=== PATIENT | male | born 1965 | race Caucasian/White ===

== ENCOUNTER 2020-11-25 23:00 | Observation (INO) | payer BC, SELFPAY ==
--- NOTE | ~2020-11-25 | CT_ITS ---
EXAMINATION: CT abdomen pelvis w con DATE: 11/26/2020 00:08 INDICATION: Left lower quadrant abdominal pain, nausea and vomiting TECHNIQUE: Computed tomography (CT) of the abdomen and pelvis was performed with 100 mL Omnipaque-350 intravenous contrast. Automated exposure control and iterative reconstruction technique were employe d. The dose-length product was 270.94 mGy-cm. COMPARISON: 01/16/2015 FINDINGS: Lung bases are clear. Heart size is normal. No pericardial or pleural effusion. Wall thickening the d istal esophagus which may be related to reflux esophagitis given the provided history of vomiting. St atus post cholecystectomy. Liver, spleen, pancreas and right adrenal gland are normal. Unchanged subc entimeter left adrenal nodule which given the interval stable stability is most consistent with an ad enoma. 1 cm right renal cyst. Unchanged mild bilateral perinephric stranding. Normal appendix. Coloni c fluid from the cecum to the mid descending colon consistent with diarrhea. Likely transient short s mall bowel intussusception located slightly anterior to the lower pole of the left kidney. No evident leak mass identified. No dilated loops of bowel to suggest obstruction. Bladder is normal. No free i ntraperitoneal gas or fluid. No pathologically enlarged abdominal or pelvic lymphadenopathy. Mild lum bar dextrocurvature. Mild scattered degenerative skeletal changes throughout the visualized spine and pelvis IMPRESSION: 1. Fluid throughout nondilated small bowel and proximal to mid colon consistent with diarrhea. Correl ate clinically for gastroenteritis. 2. Edematous wall thickening the distal esophagus likely related to reflux esophagitis given the prov ided history of nausea and vomiting. 3. Likely transient short segment small bowel intussusception in the left mid abdomen. Reviewed, dictated and finalized at location A. URCE ENGINEER IMPRESSION: 1. Fluid throughout nondilated small bowel and proximal to mid colon consistent with diarrhea. Correlate clinically for gastroenteritis. 2. Edematous wall thickening the distal esophagus likely related to reflux esop hagitis given the provided history of nausea and vomiting. 3. Likely transient short segment small bowel intussusception in the left mid a bdomen.
--- NOTE | ~2020-11-25 | XR_ITS ---
EXAMINATION: XR small bowel follow through DATE: 11/26/2020 16:06 INDICATION: Small bowel intussusception. Left lower quadrant abdominal pain. TECHNIQUE: Scabbler radiograph(s) of the abdomen was/were obtained. Oral contrast was administered, and sequential radiographs of the abdomen were obtained until oral contrast was noted to be in the proxi mal colon. Spot fluoroscopic images of the small bowel were obtained. A total of 11 overhead radiogra phs and 156 fluoroscopic images were recorded. Fluoroscopy exposure time was 0.8 minutes. COMPARISON: None. FINDINGS: Transit time from the stomach to proximal colon was approximately 3 hours and 30 minutes. There is no rmal caliber and mucosal fold pattern throughout the small bowel. Terminal ileum is normal. No, int ussusception, tethering or abnormal mass effect observed upon the small bowel with real-time fluorosc opy. IMPRESSION: 1. Normal small bowel follow-through. Reviewed, dictated and finalized at location A. ATRIC SOCIAL WORKER
[2020-11-25 23:02] VITALS: BP 113/85; PULSE 83; RESP 16; TEMP 36.7; O2SAT 100
--- NOTE | 2020-11-25 23:28 | ED.ABDPAIN ---
HPI - Abdominal Pain General Chief Complaint: Abdominal Pain Stated Complaint: abd pain Time Seen by Provider: 11/25/20 23:13 Source: patient Mode of arrival: ambulatory Limitations: no limitations History of Present Illness HPI narrative: A 55-year-old male [facility] with complaints of abdominal pain. Patient states that started earlier this evening. He notes that he was working out in his garage when he started not feel very well. Patient states that he had drank a few beers went inside had some dinner came back out working in his garage had a few more beers and said that he was just feeling unwell. Patient states that he is having abdominal pain, with nausea but no vomiting. He isolates the worst pain to his left lower quadrant but states it is diffuse. Patient denies any fevers or chills. Related Data Allergies Allergy/AdvReac Type Severity Reaction Status Date / Time No Known Allergies Allergy Verified 11/06/20 14:58 Review of Systems Review of Systems: Narrative: CONSTITUTIONAL: Denies fever, chills, or sweats. EYES: Denies visual changes, redness, or discharge. ENT: Denies rhinorrhea, congestion, sore throat, or otalgia. CARDIOVASCULAR: Denies chest pain, palpitations, or edema. RESPIRATORY: Denies cough or dyspnea. GASTROINTESTINAL: Denies nausea, vomiting, or diarrhea. Endorses pain and nausea GENITOURINARY: Denies dysuria or hematuria. SKIN: Denies rash or itching. MUSCULOSKELETAL: Denies back pain, joint pain, or myalgia. NEUROLOGIC: Denies headache, numbness, dizziness, or weakness. PSYCHIATRIC: Denies anxiety or depression. [facility] Past Medical History Medical History Anxiety Celiac artery stenosis Chronic abdominal pain Chronic low back pain Depression GERD without esophagitis Stomach pain Surgical History Surgical History History of cholecystectomy History of esophagogastroduodenoscopy (EGD) Dr Acuña at [facility] of neck surgery (~1997) Family History Family History Father Hypertension Family history of throat cancer Mother Hypertension Social History Social History Smoking packs per day: 1 Smoking cigarettes per day: 20.0 Years smoked: 25 Smoking pack-years: 25.00 Smoking status: Current every day smoker Tobacco type: cigarettes Additional smoking assessment comments: pt reports he has tried to quit. Alcohol intake: current Drinks per week: 16 Substance use: never Substance use type: does not use Gender identity (if verbalized by the patient): Male Exam Narrative: Exam Narrative: GENERAL: Well-appearing, well-nourished, and in no acute distress. HEAD: Normocephalic, atraumatic. EYES: PERRLA and EOMI. ENT: Nares clear, no rhinorrhea or epistaxis. Mucous membranes moist. Oropharynx without tonsillar hypertrophy exudate or other lesions. Bilateral TMs pearly ospina nonbulging NECK: Supple. No adenopathy or masses. No carotid bruits or JVD CHEST: Clear to auscultation. No respiratory distress. No wheezes rales or rhonchi HEART: Regular rate and rhythm. No murmur heard. Normal peripheral pulses. ABDOMEN: Soft, nondistended, normal active bowel sounds. LLQ TTP. EXTREMITIES: Normal range of motion. No edema. SKIN: Warm, dry, no rash. NEURO: No focal deficits. Alert and oriented x3. PSYCH: Normal mood and affect. Course Reevaluation(s) Reevaluation #1: Patient resting comfortably at this time. He states that his pain recently just eased. Patient did state that he was extremely relieved as he has been dealing with these episodic pains for several years and no one has ever been able to figure out what is going on. Patient to be admitted for observation to surgical services, Dr. Salas. Time: 01:27 Consultatio
[2020-11-25 23:30] LABS: Basophils Absolute Auto 0.1 K/mm3 (0.0-0.1); Basophils Percent Auto 0.4 % (0.2-1.2); Eosinophils Absolute Auto 0.2 K/mm3 (0-0.3); Eosinophils Percent Auto 1.1 % (0-4.4); Hematocrit 38.7 % (42.0-52.0); Hemoglobin 13.4 g/dL (14.0-18.0); Immature Granulocyte Absolute 0.08 K/mm3 (0.00-0.031); Immature Granulocyte Percent A 0.6 % (0-0.5); Lymphocytes Absolute Auto 1.73 K/mm3 (0.9-3.2); Lymphocytes Percent Auto 12.1 % (18.3-44.2); Mean Corpuscular HGB Conc 34.6 g/dl (32-36); Mean Corpuscular Hemoglobin 33.8 pg (26-34); Mean Corpuscular Volume 97.5 fl (80-100); Mean Platelet Volume 9.8 fl (7.4-10.4); Monocytes Absolute Auto 0.8 K/mm3 (0.1-0.6); Monocytes Percent Auto 5.6 % (2.6-8.5); Neutrophils Absolute Auto 11.5 K/mm3 (1.3-6.7); Neutrophils Percent Auto 80.2 % (45.5-73.1); Platelet Count Result 229 k/mm3 (150-375); Red Blood Count 3.97 M/mm3 (4.6-6.20); Red Cell Distribution Width 12.5 % (11.5-14.5); White Blood Count 14.3 K/mm3 (4.5-10.0)
[2020-11-25 23:42] LABS: Alanine Aminotransferase 24 U/L (4-50); Albumin Level 4.4 g/dL (3.5-5.1); Alkaline Phosphatase 58 U/L (38-126); Anion Gap 7 mmol/L (8-16); Aspartate Amino Transferase 30 U/L (17-59); Bilirubin,Total 0.3 mg/dL (0.2-1.3); Blood Urea Nitrogen 13 mg/dL (9-20); Calcium 9.4 mg/dL (8.4-10.2); Carbon Dioxide 30 mmol/L (22-30); Chloride 101 mmol/L (98-107); Estimated CRCL calculation 88 ml/min; Estimated Glomerular Filt Rate > 60; Glucose 94 mg/dL (75-110); Lipase 120 U/L (23-300); Potassium 3.6 mmol/L (3.4-5.0); Sodium 138 mmol/L (137-145)
[2020-11-25 23:56] LABS: Lactic Acid Reflex 2.2 mmol/L (0.7-2.1)
[2020-11-26] VITALS (8 sets, daily range): BP systolic 107–130; BP diastolic 51–70; PULSE 64–88; RESP 14–20; TEMP 36.4–37.1; O2SAT 97–99; BMI 22.2
[2020-11-26] MEDS: LACTATED RINGERS 1,000 ML 999 ML IV CONT (00:09)
[2020-11-26] MEDS: KETOROLAC 15 MG/ML VIAL (*BKC) IV PUSH (00:09)
[2020-11-26 00:20] LABS: Add Urine Microscopic? YES; Appearance Urine Clear (Clear); Bilirubin Urine Negative (Negative); Blood Urine Negative (Negative); Color Urine Yellow (Yellow); Glucose Urine UA Negative (Negative); Ketones Urine Trace mg/dL (Negative); Leukocyte Esterase Ur Negative LEU/UL (Negative); Mucus Urine Rare /lpf; Nitrate Urine Negative (Negative); Protein Urine Negative (Negative); RBC Urine 0-2 /hpf (0-2); Specific Grav Ur 1.011 (1.001-1.035); Urobilinogen Urine Negative mg/dL (<2.0); WBC Urine 0-3 /hpf
--- NOTE | 2020-11-26 02:21 | ADMGEN ---
This patient, Stas Pleitez, was admitted to Medical Room 241-01 at 0210. Patient/family oriented to hospital policies and general routines including ID bracelet, bed and alarms, visiting hours, pain management, procedures, bathroom and other care routines, personal items, smoking policy, room service/diet, and visiting hours. Information on how to activate the Rapid Response Team has been discussed. Patient/Family are encouraged to report perceived risks to care and to ask questions if they do not understand what they are told or what they should do.
[2020-11-26 02:39] LABS: Reflex Lactic Acid Yes or No Add Lactic
[2020-11-26] MEDS: ONDANSETRON INJ 4 MG/2 ML VIAL IV PUSH (03:07)
[2020-11-26] MEDS: MORPHINE SULFATE (*CRX) 2 MG/ML INJ IV PUSH ×3 (03:07→21:39)
[2020-11-26 03:27] LABS: Lactic Acid 0.8 mmol/L (0.7-2.1)
[2020-11-26] MEDS: NICOTINE (*PBKC) 21 MG PATCH 1 PATCH TRANSDERM (08:27)
--- NOTE | 2020-11-26 11:10 | PM.IMHP ---
H&P: HPI History of Present Illness Date/Time: 11/26/20 11:10 Chief Complaint: abdominal pain Narrative: Stas Pleitez is a 55 year old male c h/o chronic postprandial LLQ abdominal pain. Pt reports symptoms wax and wane but have been pretty constant for the last 10 yrs. Pt reports he has had an extensive workup and all tests are usually completely normal. Pt reports he is having difficulty living in this constant pain and is very frustrated c the situation. Pt reports pain is sometimes assoc c N/V, diarrhea. Review of Systems Constitutional: Constitutional: Reports anorexia, Denies chills, Reports difficulty sleeping, Reports fatigue, Denies fever(s), Denies headache(s), Denies increased appetite, Reports lethargy, Denies malaise, Reports poor appetite, Reports weakness, Denies weight gain and Reports weight loss Eyes: Eyes: Reports no additional eye complaints ENT: Reports system reviewed and no additional complaints, except as documented Cardiovascular: Cardiovascular: Reports no additional cardiovascular complaints Respiratory: Respiratory: Reports no additional respiratory complaints Gastrointestinal: Gastrointestinal: Reports as per HPI Genitourinary: Genitourinary: Reports no additional male genitourinary complaints Musculoskeletal: Musculoskeletal: Reports no additional musculoskeletal complaints Integumentary/Breasts: Skin/Breast: Reports system reviewed and no additional complaints, except as docu Neurologic: Reports system reviewed and no additional complaints, except as documented Psychiatric: Psychiatric: Reports no additional psychiatric complaints Endocrine: Endocrine: Reports no additional endocrine complaints Hematologic/Lymphatic: Hematologic/Lymphatic: Reports no additional hematologic/lymphatic complaints Allergic/Immunologic: Allergic/Immunologic: Reports no additional allergic/immunologic complaints [facility] Past Medical History Medical History Anxiety Celiac artery stenosis Chronic abdominal pain Chronic low back pain Depression GERD without esophagitis Stomach pain Surgical History Surgical History History of cholecystectomy History of esophagogastroduodenoscopy (EGD) Dr Acuña at [facility] of neck surgery (~1997) Family History Family History Father Hypertension Family history of throat cancer Mother Hypertension Social History Social History Smoking packs per day: 2 Smoking cigarettes per day: 40.0 Years smoked: 25 Smoking pack-years: 50.00 Smoking status: Current every day smoker Tobacco type: cigarettes Additional smoking assessment comments: PURCHASED PATCH AT HOME WAS GETTING READY TO QUIT SMOKING Alcohol intake: former Drinks per week: 12 Substance use: current Substance use type: marijuana Gender identity (if verbalized by the patient): Male Spiritual care concerns: No Meds Home Medications and Allergies Home Medications Medication Instructions Recorded Confirmed Type pantoprazole 40 mg tablet,delayed 40 mg PO QAM #90 tablet 11/08/20 11/26/20 Rx release hydrocodone 7.5 mg-acetaminophen 1 tablet PO DAILY PRN #30 tablet 11/18/20 11/26/20 Rx 325 mg tablet dicyclomine 10 mg PO TID 11/26/20 11/26/20 History Allergies Allergy/AdvReac Type Severity Reaction Status Date / Time No Known Allergies Allergy Verified 11/06/20 14:58 Vital Signs Vital Signs - 24 hr 11/25/20 23:02 11/26/20 00:39 11/26/20 00:57 Temperature 36.7 C 36.7 C Pulse Rate 83 88 Respiratory Rate 16 16 Blood Pressure 113/85 122/70 Pulse Oximetry 100 99 11/26/20 01:41 11/26/20 02:26 11/26/20 04:58 Temperature 36.6 C 37.1 C 36.6 C Pulse Rate 86 87 74 Respiratory Rate 16 20 20 Blood Pressure 117/69 107/59
[2020-11-26] MEDS: ZOLPIDEM TARTRATE (*CRX) 5 MG TABLET PO (21:39)
[2020-11-27] MEDS: MORPHINE SULFATE (*CRX) 2 MG/ML INJ IV PUSH (04:57)
[2020-11-27 05:31] VITALS: BP 113/58; PULSE 65; RESP 16; TEMP 36.3; O2SAT 99
[2020-11-27 05:36] LABS: Basophils Absolute Auto 0.1 K/mm3 (0.0-0.1); Basophils Percent Auto 0.7 % (0.2-1.2); Eosinophils Absolute Auto 0.3 K/mm3 (0-0.3); Eosinophils Percent Auto 4.3 % (0-4.4); Hematocrit 35.3 % (42.0-52.0); Hemoglobin 11.8 g/dL (14.0-18.0); Immature Granulocyte Absolute 0.01 K/mm3 (0.00-0.031); Immature Granulocyte Percent A 0.1 % (0-0.5); Lymphocytes Absolute Auto 3.04 K/mm3 (0.9-3.2); Lymphocytes Percent Auto 40.8 % (18.3-44.2); Mean Corpuscular HGB Conc 33.4 g/dl (32-36); Mean Corpuscular Hemoglobin 32.8 pg (26-34); Mean Corpuscular Volume 98.1 fl (80-100); Mean Platelet Volume 10.5 fl (7.4-10.4); Monocytes Absolute Auto 0.5 K/mm3 (0.1-0.6); Monocytes Percent Auto 6.8 % (2.6-8.5); Neutrophils Absolute Auto 3.5 K/mm3 (1.3-6.7); Neutrophils Percent Auto 47.3 % (45.5-73.1); Platelet Count Result 215 k/mm3 (150-375); Red Cell Distribution Width 12.6 % (11.5-14.5); White Blood Count 7.5 K/mm3 (4.5-10.0)
[2020-11-27 05:53] LABS: Alanine Aminotransferase 21 U/L (4-50); Albumin Level 3.6 g/dL (3.5-5.1); Alkaline Phosphatase 52 U/L (38-126); Anion Gap 2 mmol/L (8-16); Aspartate Amino Transferase 27 U/L (17-59); Bilirubin,Total 0.6 mg/dL (0.2-1.3); Blood Urea Nitrogen 13 mg/dL (9-20); Carbon Dioxide 34 mmol/L (22-30); Chloride 107 mmol/L (98-107); Estimated CRCL calculation 93 ml/min; Estimated Glomerular Filt Rate > 60; Glucose 89 mg/dL (75-110); Potassium 4.1 mmol/L (3.4-5.0); Sodium 143 mmol/L (137-145)
[2020-11-27 06:00] VITALS: BP 113/58; PULSE 65; RESP 16; TEMP 36.3; O2SAT 99
[2020-11-27] MEDS: NICOTINE (*PBKC) 21 MG PATCH 1 PATCH TRANSDERM (08:50)
[2020-11-27] MEDS: DICYCLOMINE HCL 10 MG CAPSULE PO (12:36)
[2020-11-27 14:00] VITALS: BP 117/68; PULSE 69; RESP 16; TEMP 36.6; O2SAT 100
--- NOTE | 2020-11-27 14:55 | PM.DS ---
DS: Admitting Diagnosis Admitting Diagnosis Admitting Diagnosis: Enteric intussusception Chronic abdominal pain DS: Discharge Diagnosis Discharge Diagnosis (1) Enteric intussusception: Code(s): K56.1 - Intussusception Status: Acute (2) Chronic abdominal pain: Code(s): R10.9 - Unspecified abdominal pain; G89.29 - Other chronic pain Status: Acute DS: Summary Hospital Course Reason for hospitalization: This is a 55-year-old male with a history of chronic abdominal pain and alcohol abuse, who presented to the ER with abdominal pain and vomiting. He reports a 10 year history of postprandial LLQ abdominal pain. This pain has been consistent for 10 years. He has had an extensive work-up with Gastroenterology and reports that all tests have come back essentially normal. He had an increase in this LLQ pain overnight on 11/25/20 with associated nausea and vomiting, and presented to the ER for evaluation. CT scan of the abdomen and pelvis suggested likely transient short segment small bowel intussusception in the left mid abdomen. He was then admitted to our service for surgical evaluation. Hospital Course: The patient was admitted and made NPO. His pain improved with bowel rest and time. We then proceeded with a gastrografin small bowel follow through to further evaluate the small bowel, which was completely normal with no tethering or abnormal mass effect of the small bowel. The patient was slowly advanced on a diet and has been tolerating this well. Bowels are moving and his pain has subsided. He continues to have postprandial pain but this has subsided after having a bowel movement today. Abdominal exam remains benign today. I have discussed the patient's case and formulated plan of care with Dr. Salas. The patient ultimately needs further outpatient workup for his chronic abdominal pain. No surgical indication at this time. The small bowel intussusception seen on CT was likely transient and he is stable for discharge. I discussed discharge instructions with the patient and answered all questions. Status at Discharge Functional status at discharge: independent ambulation Overall status at discharge: patient is back to baseline Time Spent with Patient Time attestation: Total time spent providing and/or coordinating discharge services: Time spent: Greater than 30 minutes Exam Const: Nutritional Appearance: average body habitus Orientation/consciousness: patient oriented x3 Cardio: Rate: regular rate Rhythm: regular rhythm GI: Inspection: normal to inspection and non-distended GI Palp: Yes Soft to palpation, No Tenderness to palpation present (GI), No Guarding due to palpation present (GI), No Rigid due to palpation, No Hernia present and No Rebound tenderness present Percussion: Yes normal to percussion Auscultation: normal bowel sounds Neuro: General: patient oriented x3, moves all extremities, no focal motor deficits and CN's II-XI intact bilaterally Extrem: General: normal to inspection, full ROM and no calf tenderness Psych: Appearance: grossly normal Mental Status: mental status grossly normal Insight: Good insight present (Psych) Judgement: Good judgement present (Psych) DS: Data Data Completed and Pending Labs on day of discharge: Labs from last 24 hours 11/27/20 11/27/20 04:46 04:46 WBC 7.5 RBC 3.60 L Hgb 11.8 L Hct 35.3 L MCV 98.1 MCH 32.8 MCHC 33.4 RDW 12.6 Plt Count 215 MPV 10.5 H Immature Gran % (Auto) 0.1 Neut % (Auto) 47.3 Lymph % (Auto) 40.8 [place] % (Auto) 6.8 Eos % (Auto) 4.3 Baso % (Auto) 0.7 Lymph # (Auto) 3.04 [place] # (Auto) 0.5 Eos # (Auto) 0.3 Baso # (Auto) 0.1 Abs Immat Gran (auto) 0.01 Absolute Neuts (auto) 3.5 Absolute Nucleated RBC 0.0 Nucleated RBC % 0.0 Sodium 143 Potassium 4.1 Chloride 107 Carbon Dioxide 34 H Anion Gap 2 L BUN 13 Creatinine 0.80 Estim Creat Clear Calc 93 Estimated GFR > 60 Glu
== END 2020-11-27 17:00 | disposition home or self-care (01) ==
LOC: ANHED 11-26 01:29 → ANH2MED 11-26 01:56
PROVIDERS: Admitting Provider Surgery; Emergency Provider Emergency Medicine; PCP Internal Medicine; Visit Provider Surgery
DX: K56.1 Intussusception (principal); R10.32 Left lower quadrant pain; G89.29 Other chronic pain; F10.10 Alcohol abuse, uncomplicated; F17.210 Nicotine dependence, cigarettes, uncomplicated
CPT/HCPCS: 36415; 74177; 74250; 80053; 81001; 83605; 83690; 85025; 96361; 96374; 96375; 96376; 99285; A9270; G0378; J1885; J2270; J2405; J7120; Q9967

== ENCOUNTER → 2020-12-02 00:49 | Outpatient (CLI) | payer BC, MEDICARE, SELFPAY ==
[2020-12-02 20:39] LABS: SARS-CoV-2 RNA PCR Negative
== END ==
PROVIDERS: PCP Internal Medicine; Visit Provider Internal Medicine Gastroenterology
DX: Z01.812 Encounter for preprocedural laboratory examination (principal); Z20.822 Contact with and (suspected) exposure to COVID-19
CPT/HCPCS: C9803; U0003; U0005

== ENCOUNTER 2020-12-06 01:20 | Day surgery (SDC) | payer BC, MEDICARE, SELFPAY ==
[2020-11-29 15:34] VITALS: BMI 21.8
[2020-12-06 12:30] VITALS: BP 96/70; PULSE 78; RESP 16; TEMP 37; O2SAT 100
[2020-12-06] MEDS: LACTATED RINGERS 1,000 ML 150 ML IV CONT (12:42)
--- NOTE | 2020-12-06 13:11 | WPDANESEPPF ---
Anes - Initial Pre Proc Eval Procedure: Operation Date: 12/06/20 13:30 Proposed Procedures p Esophagogastroduodenoscopy - Javier Acuña DO Date/Time: 12/06/20 13:11 Surgeon: Javier Acuña DO Pre Op Diagnosis: abdominal pain Patient Data Age: 55 Gender: M Height: 6 ft Weight: 73.4 kg Last Vital Signs Temp 37.0 C 12/06/20 12:30 Pulse 78 12/06/20 12:30 Resp 16 12/06/20 12:30 BP 96/70 L 12/06/20 12:30 Pulse Ox 100 12/06/20 12:30 Allergies Allergy/AdvReac Type Severity Reaction Status Date / Time No Known Allergies Allergy Verified 12/06/20 12:28 Home Medications Medication Instructions Recorded Confirmed Type dicyclomine 10 mg PO TID 11/26/20 12/06/20 History hydrocodone 7.5 mg-acetaminophen 0.5 tablet PO DAILY PRN #30 tablet 11/30/20 12/06/20 Rx 325 mg tablet Patient hx anesthesia problems: none Family hx anesthesia problems: none PMFSH Past Medical History Medical History Anxiety Celiac artery stenosis Chronic abdominal pain Chronic low back pain Depression GERD without esophagitis Stomach pain Surgical History Surgical History History of cholecystectomy History of esophagogastroduodenoscopy (EGD) Dr Acuña at [facility] of neck surgery (~1997) Family History Family History Father Hypertension Family history of throat cancer Mother Hypertension Social History Social History Smoking packs per day: 2 Smoking cigarettes per day: 40.0 Years smoked: 40 Smoking pack-years: 80.00 Smoking status: Former smoker Tobacco type: cigarettes Smoking end date: 11/27/20 Additional smoking assessment comments: PURCHASED PATCH AT HOME WAS GETTING READY TO QUIT SMOKING Alcohol intake: current Drinks per week: 12 Substance use: current Substance use type: marijuana Living arrangements: with family Gender identity (if verbalized by the patient): Male Spiritual care concerns: No Anes - Eval Final PreProcedure Day of Procedure 12/06/20 13:11 Patient weight: normal Heart: regular rate and rhythm Lungs: clear to auscultation Airway: Mallampati scale class II Neurological: alert and oriented Last oral intake: >/= 8 hours ASA classification: III Emergent: no Anesthetic plan: proceed Anesthesia type and monitoring: general GIVS and standard monitoring Informed Consent: The patient's anesthetic plan and its attendant risks and benefits were discussed with the patient/family/POA. Questions were solicited and answers provided to the satisfaction of the patient/family/POA.
--- NOTE | 2020-12-06 14:51 | WPDGICN ---
GI Consult Note Consult date/time: 12/06/20 14:51 HPI: Reason for visit EGD. Seen at the request of the primary physician. The patient was examined. Impression: We have a gentleman with history of GERD and thickened esophagus noted on imaging studies. Evaluate for underlying reflux esophagitis. Chronic left mid to lower abdominal pain. This may be secondary to underlying recurrent intussusception. However, this is only been shown on 1 study. History of questionable celiac artery stenosis. Follow-up studies have functional a significant stenosis. Chronic low back pain. Anxiety. Depression. Alcohol abuse. Pulmonary nodule. Tobacco abuse. Recommendation : EGD. Will do patency capsule. If passage of capsule occurs will proceed with capsule endoscopy. May consider trial of amitriptyline. History: This very pleasant gentleman is a history of chronic abdominal pain. He was recently hospitalized for left lower quadrant abdominal pain. CT imaging revealed transient intussusception in the left mid abdomen. Small-bowel follow-through was negative. The patient has had chronic abdominal pain. He has undergone multiple studies for brought the years. There is some question of celiac artery stenosis. However follow-up angiography did not confirm this finding. Patient continues to have constant pain. He has no appetite. Denies any hematochezia, melena or acholic stools. He continues to smoke and drink. CT imaging did reveal a thickened esophagus. He is here for endoscopy. Physical examination: General: very pleasant patient in no acute distress. HEENT: Head was normocephalic sclerae is clear mouth without masses neck was supple. Heart: Rate rhythm regular without S3 or S4. Lungs: CTA. Abdomen: Soft with no guarding or rigidity. Bowel sounds were active. Neurologic: Cranial nerves 2 through 12 intact. No focal defects. No clonus. Musculoskeletal system: Revealed no joint tenderness or swelling no muscle atrophy. Extremities: Reveal no significant edema. Skin: Warm and dry with normal turgor. Mental status: intact. Patient is alert and oriented. Review of Systems Review of Systems: All systems reviewed & are unremarkable except as noted in HPI and below PMFSH Past Medical History Medical History Anxiety Celiac artery stenosis Chronic abdominal pain Chronic low back pain Depression GERD without esophagitis Stomach pain Surgical History Surgical History History of cholecystectomy History of esophagogastroduodenoscopy (EGD) Dr Acuña at [facility] of neck surgery (~1997) Family History Family History Father Hypertension Family history of throat cancer Mother Hypertension Social History Social History Smoking packs per day: 2 Smoking cigarettes per day: 40.0 Years smoked: 40 Smoking pack-years: 80.00 Smoking status: Former smoker Tobacco type: cigarettes Smoking end date: 11/27/20 Additional smoking assessment comments: PURCHASED PATCH AT HOME WAS GETTING READY TO QUIT SMOKING Alcohol intake: current Drinks per week: 12 Substance use: current Substance use type: marijuana Living arrangements: with family Gender identity (if verbalized by the patient): Male Spiritual care concerns: No Meds Home Medications and Allergies Home Medications Medication Instructions Recorded Confirmed Type dicyclomine 10 mg PO TID 11/26/20 12/06/20 History hydrocodone 7.5 mg-acetaminophen 0.5 tablet PO DAILY PRN #30 tablet 11/30/20 12/06/20 Rx 325 mg tablet Allergies Allergy/AdvReac Type Severity Reaction Status Date / Time No Known Allergies Allergy Verified 12/06/20 12:28 Vital Signs Vital Si
[2020-12-06 15:03] VITALS: BP 96/62; PULSE 69; RESP 14; O2SAT 99
[2020-12-06 15:13] VITALS: BP 103/64; PULSE 61; RESP 14; O2SAT 100
--- NOTE | 2020-12-06 15:48 | SUR.PHASEII ---
PATIENT SWALLOWED PATENCY CAPSULE @ 1452 AND ORDER FOR KUB WAS GIVEN TO PATIENT FOR Friday12/08/20. REF# [id number] LOT #[id number] EXP: 2021-06-04
== END 2020-12-06 15:53 | disposition home or self-care (01) ==
PROVIDERS: PCP Internal Medicine; Visit Provider Internal Medicine Gastroenterology
PROC: 0DJ08ZZ Inspection of Upper Intestinal Tract, Via Natural or Artificial Opening Endoscopic (ICD-10-PCS; CPT 43235; principal; 2020-12-06 13:30)
PROC: 0DJ07ZZ Inspection of Upper Intestinal Tract, Via Natural or Artificial Opening (ICD-10-PCS; CPT 91110; 2020-12-06 13:30)
DX: K21.9 Gastro-esophageal reflux disease without esophagitis (principal); K29.70 Gastritis, unspecified, without bleeding; R10.32 Left lower quadrant pain; F41.8 Other specified anxiety disorders; R91.1 Solitary pulmonary nodule; M54.5 Low back pain; G89.29 Other chronic pain; F17.210 Nicotine dependence, cigarettes, uncomplicated; F12.90 Cannabis use, unspecified, uncomplicated
CPT/HCPCS: 43239; 87081; J2704; J7120

== ENCOUNTER 2020-12-08 13:59 | Outpatient (CLI) | payer BC, MEDICARE, SELFPAY ==
--- NOTE | ~2020-12-08 | XR_ITS ---
XR abdomen/kub 1V 12/08/2020 14:30 INDICATION: Flank pain TECHNIQUE: KUB COMPARISON: 11/26/2020 FINDINGS: Bowel gas pattern is normal. There is no evidence of free air, mass, organomegaly, ascites or obstruction. No abnormal calculi are seen. The bones appear intact. There is mild dextroscolios is of the lumbar spine. IMPRESSION: 1: No acute abdominal abnormality identified. Reviewed, dictated and finalized at location B. CE MACHINE INSTALLER
== END 2020-12-08 14:00 | disposition home or self-care (01) ==
LOC: ANHIMG 14:13
PROVIDERS: PCP Internal Medicine; Visit Provider Internal Medicine Gastroenterology
DX: R10.9 Unspecified abdominal pain (principal); G89.29 Other chronic pain
CPT/HCPCS: 74018

== ENCOUNTER 2020-12-14 05:51 | Outpatient (CLI) | payer BC, MEDICARE, SELFPAY ==
[2020-12-11 11:02] VITALS: BMI 21.9
--- NOTE | 2020-12-14 06:56 | SUR.OPER ---
Patient brought to GI Lab. Instructions for patient undergoing Capsule Endoscopy reviewed with patient. Consent form signed. Sensor array applied to patient's abdomen and connected to recorded. Patient swallowed capsule with 12 ozs of water infused with Simethicone. Patient instructed they may have clear liquids at 0830 this AM and eat or drink at 1030 this AM. Patient instructed to return to GI Lab at 1500 this afternoon for removal of recording device and to call [phone] or to return to the hospital if any nausea and vomiting or abdominal pain is experienced.
== END 2020-12-14 05:52 | disposition home or self-care (01) ==
PROVIDERS: PCP Internal Medicine; Visit Provider Internal Medicine Gastroenterology
PROC: 0DJ07ZZ Inspection of Upper Intestinal Tract, Via Natural or Artificial Opening (ICD-10-PCS; CPT 91110; principal; 2020-12-14 07:00)
DX: R10.84 Generalized abdominal pain (principal)
CPT/HCPCS: 91110

== ENCOUNTER 2021-03-14 15:41 | Outpatient (CLI) | payer BC, MEDICARE, SELFPAY ==
--- NOTE | ~2021-03-14 | MR_ITS ---
EXAMINATION: MR cervical spine wo con EXAM DATE: 03/14/2021 16:46 INDICATION: M54.2 - Cervicalgia. Left arm numbness and tingling. TECHNIQUE: Multi-sequential, multiplanar MR images of the cervical spine were obtained without contra st. Axial T2, axial T2 MERGE sequence. Sagittal T1, T2, T2 fat saturation images also obtained. Th ere is no prior study for comparison. FINDINGS: Moderate to severe disc disease C3-C6, moderate at C6-7. The vertebral bodies are aligned in the AP dimension. Cervical spinal cord being compressed at the C3-4 more than C4-5 levels, but no cord edema. This is chronic. Cervicomedullary junction is normal in appearance. There are no suspicio us marrow signal abnormalities. Paraspinal soft tissue is unremarkable. Level by level evaluation: C2-C3: There is a mild diffuse disc bulge. Uncovertebral joint arthropathy: Minimal bilateral. Facet joint arthropathy: Minimal bilateral. Neural foraminal stenosis: No stenosis. Central canal stenosis: No stenosis. C3-C4: There is a moderate diffuse disc bulge, flattening the spinal cord without edema. Uncovertebral joint arthropathy: Moderate to severe right, moderate left. Facet joint arthropathy: Mild to moderate bilateral. Neural foraminal stenosis: Moderate to severe right, moderate left. Central canal stenosis: Moderate . Central canal measures 5 mm in mid sagittal AP diameter . C4-C5: There is a mild to moderate diffuse disc bulge asymmetric to the left Uncovertebral joint arthropathy: Moderate to severe right, moderate left. Facet joint arthropathy: Moderate to severe right, moderate left. Neural foraminal stenosis: Severe right, mild to moderate left. Central canal stenosis: Mild to moderate . Central canal measures 7 mm in mid sagittal AP diameter . C5-C6: There is a mild diffuse disc bulge asymmetric to the left. Uncovertebral joint arthropathy: Severe left, moderate to severe right. Facet joint arthropathy: Moderate bilateral. Neural foraminal stenosis: Moderate to severe left, moderate right. Central canal stenosis: Mild. C6-C7: There is a mild diffuse disc bulge. Uncovertebral joint arthropathy: Severe bilateral. Facet joint arthropathy: Mild to moderate bilateral. Neural foraminal stenosis: Severe bilateral. Central canal stenosis: Mild. C7-T1: Disc does not extend beyond the endplate margin. Uncovertebral joint arthropathy: None. Facet joint arthropathy: Severe right, moderate left. Neural foraminal stenosis: Mild right. Central canal stenosis: No stenosis. IMPRESSION: 1. Chronic cord compression C3-4 and 4-5. No cord edema. 2. Advanced cervical spondylosis as detailed above. Reviewed, dictated and finalized at location A.
== END 2021-03-14 15:42 | disposition home or self-care (01) ==
PROVIDERS: PCP Internal Medicine; Visit Provider Nurse Practitioner
DX: M47.892 Other spondylosis, cervical region (principal)
CPT/HCPCS: 72141

== ENCOUNTER 2021-03-20 16:25 | Outpatient (CLI) | payer BC, MEDICARE, SELFPAY ==
--- NOTE | ~2021-03-20 | MR_ITS ---
EXAMINATION: MR lumbar spine wo con DATE: 03/20/2021 17:04 INDICATION: Lumbar radiculopathy. TECHNIQUE: Magnetic resonance imaging (MRI) of the lumbar spine was performed without intravenous con trast. Sequences included sagittal T2-weighted FSE, sagittal T2-weighted FS FSE, sagittal T1-weighted FSE, and axial T2-weighted FSE. COMPARISON: Lumbar spine MRI 07/21/2014 FINDINGS: There is 8 degrees dextrocurvature of lumbar spine. There is 3 mm anterolisthesis of L3 on L4. Vertebral body heights are normal. There is mildly decreased disc height at L3-L4 and L4-L5. The distal spinal cord signal intensity is normal. The conus medullaris is at T12-L1. The following disc levels are specifically discussed: L1-L2: There is a central protrusion. There is mild bilateral facet joint osteoarthritis. There is no neural foraminal stenosis. There is mild central canal stenosis. L2-L3: The disc is bulging. There is moderate bilateral facet joint osteoarthritis. There is mild shital ateral neural foraminal stenosis. There is mild central canal stenosis. L3-L4: The disc is bulging and has an annular fissure. There is severe bilateral facet joint osteoart hritis. There is mild bilateral neural foraminal stenosis. There is mild central canal stenosis. L4-L5: The disc is bulging. There is moderate bilateral facet joint osteoarthritis. There is moderate right and mild left neural foraminal stenosis. There is mild central canal stenosis. L5-S1: The disc is bulging and has an annular fissure. There is moderate right and severe left facet joint osteoarthritis. There is mild bilateral neural foraminal stenosis. There is mild central canal stenosis. IMPRESSION: 1. Moderate lumbar spondylosis, worsened from 07/21/2014. Reviewed, dictated and finalized at location B.
== END 2021-03-20 16:26 | disposition home or self-care (01) ==
PROVIDERS: PCP Internal Medicine; Visit Provider Nurse Practitioner
DX: M47.27 Other spondylosis with radiculopathy, lumbosacral region (principal); M48.07 Spinal stenosis, lumbosacral region
CPT/HCPCS: 72148

== ENCOUNTER 2021-06-16 13:37 | Outpatient (CLI) | payer BC, MEDICARE, SELFPAY ==
--- NOTE | ~2021-06-16 | MR_ITS ---
EXAMINATION: MR shoulder LT wo con DATE: 06/16/2021 15:09 INDICATION: Left shoulder pain. TECHNIQUE: Magnetic resonance imaging (MRI) of the left shoulder was performed without intravenous co ntrast. Sequences included axial PD-weighted FS FSE, coronal oblique PD-weighted FS FSE and T2-weight ed FS FSE, and sagittal oblique T2-weighted FS FSE and T1-weighted FSE. COMPARISON: None. FINDINGS: Coracoacromial arch: The acromion undersurface is curved in morphology (type II). There is severe acromioclavicular joint osteoarthritis including inferiorly directed osteophytes. Subacromial spurring is noted. There is mod erate subacromial/subdeltoid bursitis. Rotator cuff: There is an articular-sided tear of supraspinatus and infraspinatus tendons measuring 19 mm anterior to posterior by 25 mm proximal to distal by 80% tendon thickness. Teres minor tendon is normal. There is severe subscapularis tendinopathy with distal interstitial tear. There is no asymmetric fatty atr ophy of the rotator cuff muscle bellies. Biceps tendon and glenoid labrum: Biceps tendon is perched at the medial lip of the bicipital groove and partially in the subscapularis tendon tear. There is severe intra-articular biceps tendinopathy with longitudinal split tear. There is a tear of superior labrum from 10:00 to 1:00 (SLAP tear). Fluid: There is a moderate-sized glenohumeral joint effusion. Bones/cartilage: There is partial-thickness cartilage loss of glenoid and humeral head. IMPRESSION: 1. Partial-thickness tears of the rotator cuff. 2. Severe tendinopathy and partial tear of biceps tendon, which is medially subluxed partially into t he subscapularis tendon tear. 3. Mild glenohumeral joint chondrosis. 4. Severe acromioclavicular joint osteoarthritis. 5. Moderate-sized glenohumeral joint effusion. 6. Moderate subacromial/subdeltoid bursitis. Reviewed, dictated and finalized at location A. IMPRESSION: 1. Partial-thickness tears of the rotator cuff. 2. Severe tendinopathy and partial tear of biceps tendon, which is medially sub luxed partially into the subscapularis tendon tear. 3. Mild glenohumeral joint chondrosis. 4. Severe acromioclavicular joint osteoarthritis. 5. Moderate-sized glenohumeral joint effusion. 6. Moderate subacromial/subdeltoid bursitis.
== END 2021-06-16 13:38 | disposition home or self-care (01) ==
PROVIDERS: PCP Internal Medicine; Visit Provider Internal Medicine
DX: M19.012 Primary osteoarthritis, left shoulder (principal); M75.52 Bursitis of left shoulder; M25.412 Effusion, left shoulder
CPT/HCPCS: 73221

== ENCOUNTER 2022-04-12 04:22 | Day surgery (SDC) | payer BC, MEDICARE, SELFPAY ==
[2022-04-02 14:09] VITALS: BMI 27.1
--- NOTE | 2022-04-12 11:14 | WPDANESEPPF ---
Anes - Initial Pre Proc Eval Procedure: Operation Date: 04/12/22 13:00 Proposed Procedures p Esophagogastroduodenoscopy - Adrien Calderón MD Date/Time: 04/12/22 11:14 Surgeon: Adrien Calderón MD Pre Op Diagnosis: dysphagia Patient Data Age: 57 Gender: M Height: 1.83 m Weight: 91 kg Allergies Allergy/AdvReac Type Severity Reaction Status Date / Time No Known Allergies Allergy Verified 04/12/22 11:56 Home Medications Medication Instructions Recorded Confirmed Type gabapentin 300 mg capsule 300 mg PO DAILY 07/16/21 04/12/22 History hydrocodone 7.5 mg-acetaminophen 1 tablet PO Q4H 03/19/22 04/12/22 History 325 mg tablet Patient hx anesthesia problems: none Family hx anesthesia problems: none Results Review: All pre-operative results and documents have been reviewed as part of the pre-operative evaluation. [facility] Past Medical History Medical History Anxiety Biceps tendon tear Celiac artery stenosis Chronic abdominal pain Chronic low back pain Depression GERD without esophagitis Left shoulder pain Lumbar spondylolysis Rotator cuff tear Spinal cord compression Stomach pain Surgical History Surgical History History of cholecystectomy History of esophagogastroduodenoscopy (EGD) Dr Acuña at [facility] of neck surgery (~1997) Family History Family History Father Hypertension Family history of throat cancer Mother Hypertension Social History Social History Smoking packs per day: 2 Smoking cigarettes per day: 40.0 Years smoked: 40 Smoking pack-years: 80.00 Smoking status: Former smoker Tobacco type: cigarettes Smoking end date: 11/27/20 Additional smoking assessment comments: PURCHASED PATCH AT HOME WAS GETTING READY TO QUIT SMOKING Alcohol intake: current Drinks per week: 12 Alcohol use details: occasionally Substance use: current Substance use type: marijuana Other substance usage details: nightly to help with sleep Last use: DAILY Living arrangements: with family Additional occupation/education comments: Construction Gender identity (if verbalized by the patient): Male Spiritual care concerns: No Anes - Eval Final PreProcedure Day of Procedure 04/12/22 11:14 Patient weight: overweight Heart: regular rate and rhythm Lungs: clear to auscultation Airway: Mallampati scale class II Neurological: alert and oriented Last oral intake: >/= 8 hours ASA classification: III Emergent: no Anesthetic plan: proceed Anesthesia type and monitoring: general GIVS and standard monitoring Results Review: All pre-operative results and documents have been reviewed as part of the pre-operative evaluation. Informed Consent: The patient's anesthetic plan and its attendant risks and benefits were discussed with the patient/family/POA. Questions were solicited and answers provided to the satisfaction of the patient/family/POA.
[2022-04-12 11:47] VITALS: BP 118/74; PULSE 67; RESP 18; TEMP 36.3; O2SAT 100; BMI 26.2
[2022-04-12] MEDS: LACTATED RINGERS 1,000 ML 150 ML IV CONT (12:04)
--- NOTE | 2022-04-12 12:31 | PM.HPGS ---
History of Present Illness History of Present Illness Consent: Risks, benefits, and alternatives have been discussed and questions answered. Patient agrees to proceed with procedure. Chief complaint: dysphagia Narrative: Stas Pleitez is a 57 year old male With dysphagia. For several months he has had the sensation that things will not go down from his throat. Pointing to the right side of his neck he states that pills and capsules get caught there. Later he will actually taste and spit out some of the contents of those medications. Food as well as liquids seem to not want to get down from his throat. he states that his throat feels dry since he quit smoking about 7 months ago. He states that he never has heartburn. He denies having anything feels stuck in the substernal area. He can regurgitate things that are caught in his throat. He saw an Ear Nose Throat physician last week who told him that there was nothing he could see or due to explain his symptoms. Review of Systems Review of Systems: All systems reviewed & are unremarkable except as noted in HPI and below PMFSH Past Medical History Medical History Anxiety Biceps tendon tear Celiac artery stenosis Chronic abdominal pain Chronic low back pain Depression GERD without esophagitis Left shoulder pain Lumbar spondylolysis Rotator cuff tear Spinal cord compression Stomach pain Surgical History Surgical History History of cholecystectomy History of esophagogastroduodenoscopy (EGD) Dr Acuña at [facility] Hx of neck surgery (~1997) Family History Family History Father Hypertension Family history of throat cancer Mother Hypertension Social History Social History Smoking packs per day: 2 Smoking cigarettes per day: 40.0 Years smoked: 40 Smoking pack-years: 80.00 Smoking status: Former smoker Tobacco type: cigarettes Smoking end date: 11/27/20 Additional smoking assessment comments: PURCHASED PATCH AT HOME WAS GETTING READY TO QUIT SMOKING Alcohol intake: current Drinks per week: 12 Alcohol use details: occasionally Substance use: current Substance use type: marijuana Other substance usage details: nightly to help with sleep Last use: DAILY Living arrangements: with family Additional occupation/education comments: Construction Gender identity (if verbalized by the patient): Male Spiritual care concerns: No Meds Home Medications and Allergies Home Medications Medication Instructions Recorded Confirmed Type gabapentin 300 mg capsule 300 mg PO DAILY 07/16/21 04/12/22 History hydrocodone 7.5 mg-acetaminophen 1 tablet PO Q4H 03/19/22 04/12/22 History 325 mg tablet Allergies Allergy/AdvReac Type Severity Reaction Status Date / Time No Known Allergies Allergy Verified 04/12/22 11:56 Vital Signs Vital Signs - 24 hr 04/12/22 11:47 Temperature 36.3 C L Pulse Rate 67 Respiratory Rate 18 Blood Pressure 118/74 Pulse Oximetry 100 Oxygen Delivery Room Air Exam Const: General: alert Orientation/consciousness: patient oriented x3 Resp: Auscultation: clear to auscultation bilaterally Cardio: Rhythm: regular rhythm GI: GI Palp: Yes Soft to palpation and No Tenderness to palpation present (GI) Neuro: General: patient oriented x3 Assessment and Plan Assessment and plan (1) Dysphagia: Code(s): R13.10 - Dysphagia, unspecified Status: Acute Assessment and Plan: EGD with possible biopsy or dilatation or cautery.
[2022-04-12 13:09] VITALS: BP 107/64; PULSE 68; RESP 23; O2SAT 100
--- NOTE | 2022-04-12 13:12 | SUR.OPER ---
PATIENT DILATED WITH 50FR HUANG.
[2022-04-12 13:19] VITALS: BP 125/92; PULSE 66; RESP 22; O2SAT 100
[2022-04-12 13:29] VITALS: BP 113/75; PULSE 64; RESP 13; O2SAT 100
== END 2022-04-12 13:59 | disposition home or self-care (01) ==
PROVIDERS: PCP Internal Medicine; Visit Provider Internal Medicine Gastroenterology
PROC: 0DJ08ZZ Inspection of Upper Intestinal Tract, Via Natural or Artificial Opening Endoscopic (ICD-10-PCS; CPT 43235; principal; 2022-04-12 13:00)
DX: K22.2 Esophageal obstruction (principal); K21.9 Gastro-esophageal reflux disease without esophagitis; M54.50 Low back pain, unspecified; G89.29 Other chronic pain; Z79.891 Long term (current) use of opiate analgesic; F17.210 Nicotine dependence, cigarettes, uncomplicated; F12.90 Cannabis use, unspecified, uncomplicated
CPT/HCPCS: 43450; 43239; 88305; J2001; J2704; J7120

== ENCOUNTER 2022-07-08 06:39 | Outpatient (CLI) | payer BC, MEDICARE, SELFPAY ==
--- NOTE | ~2022-07-08 | MR_ITS ---
EXAMINATION: MR shoulder LT wo con DATE: 07/08/2022 07:31 INDICATION: Left shoulder pain. TECHNIQUE: Magnetic resonance imaging (MRI) of the left shoulder was performed without intravenous co ntrast. Sequences included axial PD-weighted FS FSE, coronal oblique PD-weighted FS FSE and T2-weight ed FS FSE, and sagittal oblique T2-weighted FS FSE and T1-weighted FSE. COMPARISON: Left shoulder radiographs 07/16/2021, MRI 06/16/2021 FINDINGS: Coracoacromial arch: The acromion undersurface is curved in morphology (type II). Subacromial spurring is noted. There is severe acromioclavicular joint osteoarthritis including inferiorly directed osteophytes. There is mil d subacromial/subdeltoid bursitis. Rotator cuff: There is a full-thickness tear of supraspinatus tendon measuring 12 mm anterior to posterior by 2.9 c m proximal to distal. There is moderate infraspinatus tendinopathy. Teres minor tendon is normal. The re is an interstitial tear of distal subscapularis tendon. There is mild fatty atrophy of the rotator cuff muscle bellies. Biceps tendon and glenoid labrum: There is a partial tear of biceps tendon. A portion of the tendon is displaced into the subscapularis tendon tear. There is degenerative tearing of the superior labrum from 10:00 to 12:00 (SLAP tear). Fluid: There is a small glenoid humeral joint effusion. Bones/cartilage: There is cartilage surface irregularity of glenoid and humeral head. IMPRESSION: 1. Full-thickness rotator cuff tear. 2. Partial tear of biceps tendon, a portion of which is displaced into the partial tear of subscapula ris tendon. 3. Mild glenohumeral joint chondrosis. SLAP tear. 4. Small glenohumeral joint effusion and mild subacromial/subdeltoid bursitis. 5. Severe acromioclavicular joint osteoarthritis. Reviewed, dictated and finalized at location A. IMPRESSION: 1. Full-thickness rotator cuff tear. 2. Partial tear of biceps tendon, a portion of which is displaced into the part ial tear of subscapularis tendon. 3. Mild glenohumeral joint chondrosis. SLAP tear. 4. Small glenohumeral joint effusion and mild subacromial/subdeltoid bursitis. 5. Severe acromioclavicular joint osteoarthritis.
== END 2022-07-08 06:40 | disposition home or self-care (01) ==
LOC: ANHIMG 06:45
PROVIDERS: PCP Internal Medicine; Visit Provider Orthopaedic Surgery
DX: M75.102 Unspecified rotator cuff tear or rupture of left shoulder, not specified as traumatic (principal); M19.012 Primary osteoarthritis, left shoulder; M25.412 Effusion, left shoulder
CPT/HCPCS: 73221

== ENCOUNTER 2023-10-22 00:16 | Day surgery (SDC) | payer BC, MEDICARE, SELFPAY ==
[2023-09-30 16:05] VITALS: BMI 27.8
--- NOTE | 2023-10-21 11:26 | SUR.PREOP ---
Patient called regarding upcoming procedure. Reviewed preop instructions, appointment times, and procedure prep.
--- NOTE | 2023-10-21 13:30 | PM.HPGS ---
History of Present Illness History of Present Illness Consent: Risks, benefits, and alternatives have been discussed and questions answered. Patient agrees to proceed with procedure. Chief complaint: Change in bowel habit Narrative: Stas Pleitez is a 58 year old male Who is undergoing investigation of a change in bowel habits. He had continuous pain on the left side of his abdomen.? It is always there but the if he eats a lot he will be much more uncomfortable the following night and morning.? He feels that if he eats too much and does not have neurologist bowel movement that it presses on nerves in the back.? The pain has been there for several years.? He has noticed that it helps him to sit up and if he leans to the right is not as painful.? His bowels usually move once every morning.? If he drinks a lot of beer his bowels may be looser.? 1 morning recently had significant diarrhea which she states lasted ?all morning.? he had had ice cream the previous night but other times he will have milk and it does not bother him.? He is not losing weight in fact has gained 40 lb in last 2 years since he quit smoking. Review of Systems Review of Systems: All systems reviewed & are unremarkable except as noted in HPI and below PMFSH Past Medical History Medical History Anxiety Biceps tendon tear Celiac artery stenosis Chronic abdominal pain Chronic low back pain Depression GERD without esophagitis Left shoulder pain Lumbar spondylolysis Rotator cuff tear Spinal cord compression Stomach pain Surgical History Surgical History History of cholecystectomy History of esophagogastroduodenoscopy (EGD) Dr Acuña at [facility] Hx of neck surgery (~1997) Family History Family History Father Hypertension Family history of throat cancer Mother Hypertension Social History Social History Smoking packs per day: 2 Smoking cigarettes per day: 40.0 Years smoked: 40 Smoking pack-years: 80.00 Smoking status: Former smoker Tobacco type: cigarettes Smoking end date: 11/27/20 Additional smoking assessment comments: PURCHASED PATCH AT HOME WAS GETTING READY TO QUIT SMOKING Alcohol intake: current Drinks per week: 12 Alcohol use details: 12 drinks a week Substance use: current Substance use type: marijuana Other substance usage details: nightly to help with sleep Last use: DAILY Living arrangements: with family 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 Gender identity (if verbalized by the patient): Male Spiritual care concerns: No Meds Home Medications and Allergies Home Medications Medication Instructions Recorded Confirmed Type gabapentin 300 mg capsule 300 mg PO DAILY 07/16/21 10/22/23 History hydrocodone 7.5 mg-acetaminophen 1 tablet PO Q4H 03/19/22 10/22/23 History 325 mg tablet lansoprazole 30 mg capsule,delayed 30 mg PO BID 09/16/23 10/22/23 History release pantoprazole 40 mg tablet,delayed 40 mg PO QAM 09/16/23 10/22/23 History release Allergies Allergy/AdvReac Type Severity Reaction Status Date / Time No Known Allergies Allergy Verified 10/22/23 09:37 Exam Resp: Auscultation: clear to auscultation bilaterally Cardio: Rate: regular rate Rhythm: regular rhythm GI: GI Palp: Yes Soft to palpation and No Tenderness to palpation present (GI) Assessment and Plan Assessment and plan (1) Change in bowel habits: Code(s): R19.4 - Change in bowel habit Status: Acute Assessment and Plan: Colonoscopy with possible biopsy or polypectomy or cautery or injection of substances.
[2023-10-22 09:38] VITALS: BP 107/73; PULSE 74; RESP 16; TEMP 36.5; O2SAT 98; BMI 26.6
[2023-10-22] MEDS: LACTATED RINGERS 1,000 ML 150 ML IV CONT (09:46)
--- NOTE | 2023-10-22 09:50 | WPDANESEPPF ---
Anes - Initial Pre Proc Eval Procedure: Operation Date: 10/22/23 11:00 Proposed Procedures p Colonoscopy - Adrien Calderón MD Date/Time: 10/22/23 09:50 Surgeon: Adrien Calderón MD Pre Op Diagnosis: Change in bowel habit Patient Data Age: 58 Gender: M Height: 1.83 m Weight: 89.2 kg Last Vital Signs Temp 97.7 F 10/22/23 09:38 Pulse 74 10/22/23 09:38 Resp 16 10/22/23 09:38 BP 107/73 10/22/23 09:38 Pulse Ox 98 10/22/23 09:38 O2 Del Method Room Air 10/22/23 09:38 Allergies Allergy/AdvReac Type Severity Reaction Status Date / Time No Known Allergies Allergy Verified 10/22/23 09:37 Home Medications Medication Instructions Recorded Confirmed Type gabapentin 300 mg capsule 300 mg PO DAILY 07/16/21 10/22/23 History hydrocodone 7.5 mg-acetaminophen 1 tablet PO Q4H 03/19/22 10/22/23 History 325 mg tablet lansoprazole 30 mg capsule,delayed 30 mg PO BID 09/16/23 10/22/23 History release pantoprazole 40 mg tablet,delayed 40 mg PO QAM 09/16/23 10/22/23 History release Patient hx anesthesia problems: none Family hx anesthesia problems: none Results Review: All pre-operative results and documents have been reviewed as part of the pre-operative evaluation. [facility] Past Medical History Medical History Anxiety Biceps tendon tear Celiac artery stenosis Chronic abdominal pain Chronic low back pain Depression GERD without esophagitis Left shoulder pain Lumbar spondylolysis Rotator cuff tear Spinal cord compression Stomach pain Surgical History Surgical History History of cholecystectomy History of esophagogastroduodenoscopy (EGD) Dr Acuña at [facility] of neck surgery (~1997) Family History Family History Father Hypertension Family history of throat cancer Mother Hypertension Social History Social History Smoking packs per day: 2 Smoking cigarettes per day: 40.0 Years smoked: 40 Smoking pack-years: 80.00 Smoking status: Former smoker Tobacco type: cigarettes Smoking end date: 11/27/20 Additional smoking assessment comments: PURCHASED PATCH AT HOME WAS GETTING READY TO QUIT SMOKING Alcohol intake: current Drinks per week: 12 Alcohol use details: 12 drinks a week Substance use: current Substance use type: marijuana Other substance usage details: nightly to help with sleep Last use: DAILY Living arrangements: with family 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 Informed Consent: The patient's anesthetic plan and its attendant risks and benefits were discussed with the patient/family/POA. Questions were solicited and answers provided to the satisfaction of the patient/family/POA.
[2023-10-22 11:08] VITALS: BP 89/57; PULSE 70; RESP 16; O2SAT 98
[2023-10-22 11:18] VITALS: BP 91/61; PULSE 72; RESP 20; O2SAT 98
[2023-10-22 11:28] VITALS: BP 100/62; PULSE 65; RESP 20; O2SAT 100
== END 2023-10-22 11:34 | disposition home or self-care (01) ==
PROVIDERS: PCP Internal Medicine; Visit Provider Internal Medicine Gastroenterology
PROC: 0DJD8ZZ Inspection of Lower Intestinal Tract, Via Natural or Artificial Opening Endoscopic (ICD-10-PCS; CPT 45378; principal; 2023-10-22 11:00)
DX: R19.4 Change in bowel habit (principal); K57.30 Diverticulosis of large intestine without perforation or abscess without bleeding; K64.8 Other hemorrhoids; F41.9 Anxiety disorder, unspecified; F32.A Depression, unspecified; K21.9 Gastro-esophageal reflux disease without esophagitis; I77.4 Celiac artery compression syndrome; G95.20 Unspecified cord compression; M54.50 Low back pain, unspecified; G89.29 Other chronic pain; Z98.890 Other specified postprocedural states; F12.90 Cannabis use, unspecified, uncomplicated; Z79.891 Long term (current) use of opiate analgesic; Z87.891 Personal history of nicotine dependence; Z80.1 Family history of malignant neoplasm of trachea, bronchus and lung; Z90.49 Acquired absence of other specified parts of digestive tract
CPT/HCPCS: 45378; J2704; J7120

== ENCOUNTER 2024-05-11 02:05 | Day surgery (SDC) | payer BC, MEDICARE, SELFPAY ==
[2024-05-03 09:33] VITALS: BMI 25.4
[2024-05-11 09:46] VITALS: BP 133/71; PULSE 60; RESP 16; TEMP 36.1; O2SAT 100; BMI 26.6
--- NOTE | 2024-05-11 09:47 | P.PNAN_ITS ---
Anes - Initial Pre Proc Eval Procedure: Operation Date: 05/11/24 11:00 Proposed Procedures p Esophagogastroduodenoscopy - Jose Martin Xavier MD Date/Time: 05/11/24 09:47 Surgeon: Jose Martin Xavier MD Pre Op Diagnosis: dysphagia unspecified Patient Data Age: 59 Gender: M Height: 1.83 m Weight: 85 kg Allergies Allergy/AdvReac Type Severity Reaction Status Date / Time No Known Allergies Allergy Verified 05/11/24 09:44 Home Medications Medication Instructions Recorded Confirmed Type gabapentin 300 mg capsule 300 mg PO DAILY 07/16/21 05/11/24 History hydrocodone 7.5 mg-acetaminophen 1 tablet PO Q4H PRN Pain 03/19/22 05/11/24 History 325 mg tablet trazodone 100 mg tablet 100 mg PO HS 05/03/24 05/11/24 History Patient hx anesthesia problems: none Family hx anesthesia problems: none Results Review: All pre-operative results and documents have been reviewed as part of the pre- operative evaluation. [facility] Past Medical History Medical History Anxiety Biceps tendon tear Celiac artery stenosis Chronic abdominal pain Chronic low back pain Depression GERD without esophagitis Left shoulder pain Lumbar spondylolysis Rotator cuff tear Spinal cord compression Stomach pain Surgical History Surgical History History of cholecystectomy History of esophagogastroduodenoscopy (EGD) Dr Acuña at [facility] [place] of neck surgery (~1997) Family History Family History Father Hypertension Family history of throat cancer Mother Hypertension Social History Social History Smoking packs per day: 2 Smoking cigarettes per day: 40.0 Years smoked: 45 Smoking pack-years: 90.00 Smoking status: Former smoker Tobacco type: cigarettes Smoking end date: 11/27/20 Additional smoking assessment comments: PURCHASED PATCH AT HOME WAS GETTING READY TO QUIT SMOKING Alcohol intake: current Drinks per week: 5 Alcohol use details: BEER Substance use: current Substance use type: marijuana Other substance usage details: SOMETIMES AT HS TO HELP SLEEP Last use: DAILY Living arrangements: with family 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 Pt ex smoker, quit 2020, 45 pack years. Informed Consent: The patient's anesthetic plan and its attendant risks and benefits were discussed with the patient/family/POA. Questions were solicited and answers provided to the satisfaction of the pa
[2024-05-11] MEDS: LACTATED RINGERS 1,000 ML 150 ML IV CONT (09:58)
--- NOTE | 2024-05-11 10:36 | PM.HPGS ---
History of Present Illness History of Present Illness Consent: Risks, benefits, and alternatives have been discussed and questions answered. Patient agrees to proceed with procedure. Chief complaint: dysphagia unspecified Narrative: Stas Pleitez is a 59 year old male with dysphagia to both solids and liquids, empiric dilatation 2021 with 50 Fr Flores Review of Systems Review of Systems: All systems reviewed & are unremarkable except as noted in HPI and below PMFSH Past Medical History Medical History Anxiety Biceps tendon tear Celiac artery stenosis Chronic abdominal pain Chronic low back pain Depression GERD without esophagitis Left shoulder pain Lumbar spondylolysis Rotator cuff tear Spinal cord compression Stomach pain Surgical History Surgical History History of cholecystectomy History of esophagogastroduodenoscopy (EGD) Dr Acuña at [facility] of neck surgery (~1997) Family History Family History Father Hypertension Family history of throat cancer Mother Hypertension Social History Social History Smoking packs per day: 2 Smoking cigarettes per day: 40.0 Years smoked: 45 Smoking pack-years: 90.00 Smoking status: Former smoker Tobacco type: cigarettes Smoking end date: 11/27/20 Additional smoking assessment comments: PURCHASED PATCH AT HOME WAS GETTING READY TO QUIT SMOKING Alcohol intake: current Drinks per week: 5 Alcohol use details: BEER Substance use: current Substance use type: marijuana Other substance usage details: SOMETIMES AT TO HELP SLEEP Last use: DAILY Living arrangements: with family 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 Gender identity (if verbalized by the patient): Male Spiritual care concerns: No Meds Home Medications and Allergies Home Medications Medication Instructions Recorded Confirmed Type gabapentin 300 mg capsule 300 mg PO DAILY 07/16/21 05/11/24 History hydrocodone 7.5 mg-acetaminophen 1 tablet PO Q4H PRN Pain 03/19/22 05/11/24 History 325 mg tablet trazodone 100 mg tablet 100 mg PO HS 05/03/24 05/11/24 History Allergies Allergy/AdvReac Type Severity Reaction Status Date / Time No Known Allergies Allergy Verified 05/11/24 09:44 Vital Signs Vital Signs - 24 hr 05/11/24 09:46 Temperature 97 F L Pulse Rate 60 Respiratory Rate 16 Blood Pressure 133/71 Pulse Oximetry 100 Oxygen Delivery Room Air Exam Const: General: comfortable and no acute distress HENMT: Face/Nose/Sinus: Normal nares present Eyes: General: appearance normal, both eyes and all related structures Neck: Neck: no JVD Resp: Auscultation: clear to auscultation bilaterally Cardio: Rate: regular rate Rhythm: regular rhythm GI: Inspection: non-distended GI Palp: Yes Soft to palpation Skin: General skin exam: normal color Neuro: General: gait normal Speech: normal speech Extrem: General: normal to inspection Psych: Mental Status: mental status grossly normal Assessment and Plan Assessment and plan (1) Dysphagia: Code(s): R13.10 - Dysphagia, unspecified Status: Acute Assessment and Plan: egd to assess
[2024-05-11 10:54] VITALS: BP 122/80; PULSE 62; RESP 16; O2SAT 98
[2024-05-11 11:04] VITALS: BP 116/71; PULSE 58; RESP 18; O2SAT 100
[2024-05-11 11:14] VITALS: BP 132/87; PULSE 54; RESP 18; O2SAT 100
== END 2024-05-11 11:23 | disposition home or self-care (01) ==
PROVIDERS: PCP Internal Medicine; Referring Provider Nurse Practitioner Family; Visit Provider Internal Medicine Gastroenterology
PROC: 0DJ08ZZ Inspection of Upper Intestinal Tract, Via Natural or Artificial Opening Endoscopic (ICD-10-PCS; CPT 43235; principal; 2024-05-11 11:00)
DX: K29.50 Unspecified chronic gastritis without bleeding (principal); K21.00 Gastro-esophageal reflux disease with esophagitis, without bleeding; M54.9 Dorsalgia, unspecified; G89.29 Other chronic pain; F41.9 Anxiety disorder, unspecified; F32.A Depression, unspecified; Z79.891 Long term (current) use of opiate analgesic; F12.90 Cannabis use, unspecified, uncomplicated; Z87.891 Personal history of nicotine dependence
CPT/HCPCS: 43239; 43450; 88305; J2704; J7120